=== PATIENT | female | born 1950 | race Caucasian/White ===

== ENCOUNTER 2018-04-15 21:15 | Emergency (ER) | payer MEDICARE ==
[2018-04-15] MEDS: PERCOCET 5MG/325MG TAB PO (23:41)
[2018-04-16 00:18] LABS: BASO % 0.4 % (0.0-1.0); EOS % 0.1 % (0.0-3.0); HEMATOCRIT 45.1 % (36.0-47.0); IMMATURE GRANULOCYTE % 0.5 % (0-3.0); LYMPH # 1.3 10^3/uL (1.5-4.5); LYMPH % 12.1 % (24.0-44.0); MEAN CORPUSCULAR HEMOGLOBIN 31.9 pg (27.0-33.0); MEAN CORPUSCULAR HGB CONC 35.5 g/dl (32.0-36.5); MONO # 0.5 10^3/uL (0.0-0.8); MONO % 4.7 % (0.0-5.0); NEUTROPHILS # 8.5 10^3/uL (1.8-7.7); NEUTROPHILS % 82.2 % (36.0-66.0); PLATELET COUNT, AUTOMATED 306 10^3/uL (150-450); RED BLOOD COUNT 5.01 10^6/uL (4.00-5.40); WHITE BLOOD COUNT 10.3 10^3/uL (4.0-10.0)
[2018-04-16 00:41] LABS: ALBUMIN 3.9 GM/DL (3.2-5.2); ALBUMIN/GLOBULIN RATIO 1.03 (1.00-1.93); ALKALINE PHOSPHATASE 116 U/L (45-117); ALT/SGPT 33 U/L (12-78); ANION GAP 13 MEQ/L (8-16); AST/SGOT 18 U/L (7-37); BILIRUBIN,DIRECT 0.2 MG/DL (0.0-0.2); BILIRUBIN,TOTAL 0.5 MG/DL (0.2-1.0); BLOOD UREA NITROGEN 33 MG/DL (7-18); CALCIUM LEVEL 9.6 MG/DL (8.8-10.2); CARBON DIOXIDE LEVEL 26 MEQ/L (21-32); CHLORIDE LEVEL 98 MEQ/L (98-107); CK-MB VALUE MASS 3.4 NG/ML (<3.6); CPK CREATINE PHOSPHOKINASE 100 U/L (26-192); CREATININE FOR GFR 1.13 MG/DL (0.55-1.30); GLOMERULAR FILTRATION RATE 50.7 (>39); GLUCOSE, FASTING 180 MG/DL (70-100); LIPASE 273 U/L (73-393); POTASSIUM SERUM 4.1 MEQ/L (3.5-5.1); SODIUM LEVEL 137 MEQ/L (136-145); TOTAL PROTEIN 7.7 GM/DL (6.4-8.2); TROPONIN I < 0.02 NG/ML (< 0.10)
== END 2018-04-16 02:07 | disposition home or self-care (01) ==
LOC: M ED 04-16 02:07
DX: M50.31 Other cervical disc degeneration, high cervical region (principal); M50.321 Other cervical disc degeneration at C4-C5 level; M54.12 Radiculopathy, cervical region; M12.9 Arthropathy, unspecified; R94.31 Abnormal electrocardiogram [ECG] [EKG]; I10 Essential (primary) hypertension; E78.00 Pure hypercholesterolemia, unspecified; E07.9 Disorder of thyroid, unspecified; F41.9 Anxiety disorder, unspecified; Z79.82 Long term (current) use of aspirin; Z79.52 Long term (current) use of systemic steroids; Z79.899 Other long term (current) drug therapy
CPT/HCPCS: J2270

== ENCOUNTER 2018-04-16 19:58 | Emergency (ER) | payer MEDICARE ==
[2018-04-16] MEDS ORDERED: MORPHINE 4 MG/ML 1ML VIAL/SYRINGE (J2270) IV (22:00)
[2018-04-16] MEDS: MORPHINE 4 MG/ML 1ML VIAL/SYRINGE (J2270) IM (22:14)
[2018-04-16] MEDS: ONDANSETRON 4 MG ORAL DISINTEGRATING TAB (Q0162 PER 1MG) PO (22:14)
== END 2018-04-16 22:44 | disposition home or self-care (01) ==
LOC: M ED 19:58
DX: M50.31 Other cervical disc degeneration, high cervical region (principal); M50.321 Other cervical disc degeneration at C4-C5 level; M54.12 Radiculopathy, cervical region; I10 Essential (primary) hypertension; E78.70 Disorder of bile acid and cholesterol metabolism, unspecified; E07.9 Disorder of thyroid, unspecified; F41.9 Anxiety disorder, unspecified; Z79.52 Long term (current) use of systemic steroids; Z79.890 Hormone replacement therapy; Z79.899 Other long term (current) drug therapy

== ENCOUNTER 2018-10-24 08:46 | Emergency (ER) | payer MEDICARE ==
[~2018-10-24 08:46] MED LIST: CALCTAB97 PO; GABA-1171; LIPI20TA PO; MAXZTAB PO; PERCOCET PO; PRED10TA2; RANI1SYP PO; ROBA500T PO; SING10TA32 PO; SYNT88TA2 PO; TYLE1TAB5 PO; VITAD1000T PO
[2018-10-24] MEDS ORDERED: ESCI5SOL3 PO (09:10)
[2018-10-24] MEDS ORDERED: PROAAER10 INH (09:11)
[2018-10-24] MEDS ORDERED: NORCO, ANEXSIA 5/325MG TABLET (HYDROcodone/ACETAMINOPHEN) PO ONE (09:15)
[2018-10-24] MEDS ORDERED: NORCOTAB PO (10:09)
--- NOTE | 2018-10-24 10:14 | REP ---
CT LUMBAR SPINE WITHOUT CONTRAST: HISTORY: Trauma. There is no disc bulge or herniation at the L1-2 and L2-3 levels. The nerves exit the neural foramina without compression. A diffuse disc bulge is present at the L3-4 level. There is minimal compression of the thecal sac. There is hypertrophy of the posterior articulating facets. The L3 nerves exit the neural foramina without compression. A diffuse disc bulge is present at the L4-5 level. There is hypertrophy of the ligamenta flava and posterior articulating facets. There are 4 mm of grade I spondylolisthesis of L4 on 5. These findings produce mild central canal stenosis. The L4 nerves exit the neural foramina without compression. A diffuse disc bulge is present at the L5-S1 level. There is minimal compression of the thecal sac. There is hypertrophy of the posterior articulating facets. The L5 nerves exit the neural foramina without compression. The L3-4 through L5-S1 intervertebral discs are decreased in height consistent with disc degeneration. There is a fracture of the right L1 transverse process. There is sclerosis adjacent to the sacroiliac joints. IMPRESSION: 1. Diffuse disc bulges at the L3-4 and L5-S1 levels with minimal thecal sac compression. 2. Mild central canal stenosis at the L4-5 level secondary to disc bulge, ligamentous and facet hypertrophy, and grade I spondylolisthesis. 3. Right L1 transverse process fracture. Electronically Signed by German Tidwell MD 10/24/2018 10:18 A
[2018-10-24 10:30] VITALS: BP 142/74
== END 2018-10-24 10:58 | disposition home or self-care (01) ==
LOC: M ED 08:46
DX: S32.018A Other fracture of first lumbar vertebra, initial encounter for closed fracture (principal); W10.8XXA Fall (on) (from) other stairs and steps, initial encounter; Y92.89 Other specified places as the place of occurrence of the external cause; I10 Essential (primary) hypertension; E07.9 Disorder of thyroid, unspecified; Z79.899 Other long term (current) drug therapy; Z79.890 Hormone replacement therapy

== ENCOUNTER 2021-11-10 08:55 | Inpatient (IN) | payer MEDICARE ==
[~2021-11-10] VITALS: Ht 157.5 cm; Wt 87.5 kg
[~2021-11-10 08:55] MED LIST changes: +CHOL100029 PO; +ESCI5SOL3 PO; +HYDR-3715 PO; +PROAAER10 INH; -VITAD1000T PO
[2021-11-10] MEDS ORDERED: NS 1,000 ML IV SCH (09:15)
[2021-11-10] MEDS ORDERED: NS 1,000 ML IV ONE (09:15)
[2021-11-10] MEDS ORDERED: ONDANSETRON 4MG/2ML VIAL IV ONE (09:15)
[2021-11-10] MEDS: MORPHINE 4 MG/ML 1ML VIAL/SYRINGE (J2270) IV PRN ×2 (09:29→10:18)
[2021-11-10 09:34] LABS: BASO # 0.1 10^3/uL (0.0-0.2); BASO % 0.7 % (0.0-1.0); EOS # 0.1 10^3/uL (0.0-0.5); EOS % 1.1 % (0.0-3.0); HEMATOCRIT 37.1 % (36.0-47.0); HEMOGLOBIN 12.8 g/dl (12.0-15.5); LYMPH % 9.3 % (24.0-44.0); MEAN CORPUSCULAR HEMOGLOBIN 30.9 pg (27.0-33.0); MEAN CORPUSCULAR HGB CONC 34.5 g/dl (32.0-36.5); MEAN CORPUSCULAR VOLUME 89.6 fl (80.0-96.0); MONO % 9.6 % (2.0-8.0); NEUTROPHILS # 8.4 10^3/uL (1.5-8.5); NEUTROPHILS % 78.5 % (36.0-66.0); PLATELET COUNT, AUTOMATED 278 10^3/uL (150-450); RED BLOOD COUNT 4.14 10^6/uL (4.00-5.40); WHITE BLOOD COUNT 10.6 10^3/uL (4.0-10.0)
[2021-11-10 10:02] LABS: ALBUMIN 3.4 GM/DL (3.2-5.2); BILIRUBIN,DIRECT 0.2 MG/DL (0.0-0.2); BILIRUBIN,TOTAL 0.6 MG/DL (0.2-1.0); CALCIUM LEVEL 9.5 MG/DL (8.8-10.2); CREATININE FOR GFR 1.19 MG/DL (0.55-1.30); GLOMERULAR FILTRATION RATE 47.3 (>39); POTASSIUM SERUM 3.8 MEQ/L (3.5-5.1); TOTAL PROTEIN 7.2 GM/DL (6.4-8.2)
[2021-11-10 11:12] LABS: RSV AMPLIFICATION NEGATIVE (NEGATIVE)
[2021-11-10] MEDS ORDERED: LEVO88TA3 PO (11:52)
[2021-11-10] MEDS ORDERED: CARB25TA9 PO (11:52)
[2021-11-10] MEDS ORDERED: FAMO1TAB11 PO (11:52)
[2021-11-10] MEDS ORDERED: SPIR-10 PO (11:52)
[2021-11-10] MEDS ORDERED: MORPHINE 4 MG/ML 1ML VIAL/SYRINGE (J2270) IV PRN ×2 (11:55→13:35)
[2021-11-10] MEDS ORDERED: LR 1,000 ML IV SCH (13:35)
[2021-11-10] MEDS ORDERED: KETOROLAC 30 MG/ML 1ML VIAL IV PRN (13:35)
[2021-11-10] MEDS ORDERED: VITA100093 PO (14:11)
[2021-11-10] MEDS ORDERED: LOSA25TA13 PO (14:11)
[2021-11-10] MEDS ORDERED: CITRTAB16 PO (14:11)
[2021-11-10] MEDS ORDERED: LEXA1TAB PO (14:11)
[2021-11-10] MEDS ORDERED: HOME MED LIST COMPLETE! XX SCH (14:15)
[2021-11-10 16:32] LABS: BASO # 0.1 10^3/uL (0.0-0.2); BASO % 0.6 % (0.0-1.0); EOS # 0.1 10^3/uL (0.0-0.5); HEMATOCRIT 36.8 % (36.0-47.0); HEMOGLOBIN 12.4 g/dl (12.0-15.5); LYMPH % 8.6 % (24.0-44.0); MEAN CORPUSCULAR HEMOGLOBIN 30.5 pg (27.0-33.0); MEAN CORPUSCULAR HGB CONC 33.7 g/dl (32.0-36.5); MEAN CORPUSCULAR VOLUME 90.4 fl (80.0-96.0); MONO # 1.4 10^3/uL (0.0-0.8); MONO % 11.2 % (2.0-8.0); NEUTROPHILS # 9.4 10^3/uL (1.5-8.5); NEUTROPHILS % 77.9 % (36.0-66.0); RED BLOOD COUNT 4.07 10^6/uL (4.00-5.40)
[2021-11-10] MEDS: LOSARTAN 25 MG TAB PO SCH (16:51)
[2021-11-10 17:02] LABS: PLATELET COUNT, AUTOMATED 247 10^3/uL (150-450)
[2021-11-10] MEDS: ACETAMINOPHEN TAB 650MG DOSE (2X325MG) PO PRN (22:04)
[2021-11-10] MEDS: NS 1,000 ML IV SCH (22:05)
[2021-11-10] MEDS: PIPERACILLIN/TAZOBACTAM SOD 3.375 GM in D5W MINI-BAG PLUS 50 ML IV SCH (22:07)
[2021-11-11] MEDS: PIPERACILLIN/TAZOBACTAM SOD 3.375 GM in D5W MINI-BAG PLUS 50 ML IV SCH ×4 (04:14→20:53)
[2021-11-11] MEDS: ONDANSETRON 4MG/2ML VIAL IV PRN (08:07)
[2021-11-11] MEDS: NS 1,000 ML IV SCH (09:04)
[2021-11-11] MEDS: LOSARTAN 25 MG TAB PO SCH (09:05)
[2021-11-11 10:00] VITALS: BP 155/81
[2021-11-11 10:04] LABS: BASO # 0.1 10^3/uL (0.0-0.2); BASO % 0.5 % (0.0-1.0); EOS # 0.2 10^3/uL (0.0-0.5); EOS % 2.1 % (0.0-3.0); HEMOGLOBIN 11.3 g/dl (12.0-15.5); LYMPH # 0.7 10^3/uL (1.5-5.0); LYMPH % 7.2 % (24.0-44.0); MEAN CORPUSCULAR HEMOGLOBIN 31.1 pg (27.0-33.0); MEAN CORPUSCULAR HGB CONC 34.2 g/dl (32.0-36.5); MEAN CORPUSCULAR VOLUME 90.9 fl (80.0-96.0); MONO # 1.3 10^3/uL (0.0-0.8); MONO % 12.4 % (2.0-8.0); PLATELET COUNT, AUTOMATED 222 10^3/uL (150-450); RED BLOOD COUNT 3.63 10^6/uL (4.00-5.40); WHITE BLOOD COUNT 10.3 10^3/uL (4.0-10.0)
[2021-11-11 10:36] LABS: ALBUMIN 2.6 GM/DL (3.2-5.2); ALT/SGPT 140 U/L (12-78); BLOOD UREA NITROGEN 20 MG/DL (7-18); CALCIUM LEVEL 8.3 MG/DL (8.8-10.2); CARBON DIOXIDE LEVEL 26 MEQ/L (21-32); CHLORIDE LEVEL 111 MEQ/L (98-107); CREATININE FOR GFR 0.86 MG/DL (0.55-1.30); GLOMERULAR FILTRATION RATE > 60.0 (>39); GLUCOSE, FASTING 147 MG/DL (70-100); POTASSIUM SERUM 3.9 MEQ/L (3.5-5.1); SODIUM LEVEL 142 MEQ/L (136-145); TOTAL PROTEIN 5.8 GM/DL (6.4-8.2)
[2021-11-11] MEDS ORDERED: ALBUTEROL 90 MCG/ACT 8GM HFA INHALER INH PRN (16:40)
[2021-11-11] MEDS: ACETAMINOPHEN TAB 650MG DOSE (2X325MG) PO PRN (17:53)
[2021-11-11 20:00] VITALS: BP 140/62
[2021-11-11] MEDS: ATORVASTATIN 20 MG TAB PO SCH (20:53)
[2021-11-12] VITALS (10 sets, daily range): BP systolic 138–154; BP diastolic 62–75
[2021-11-12] MEDS: NS 1,000 ML IV SCH ×2 (04:23→18:25)
[2021-11-12] MEDS: PIPERACILLIN/TAZOBACTAM SOD 3.375 GM in D5W MINI-BAG PLUS 50 ML IV SCH ×4 (04:24→21:32)
[2021-11-12] MEDS: ONDANSETRON 4MG/2ML VIAL IV PRN (05:32)
[2021-11-12] MEDS: LEVOTHYROXINE 88MCG TABLET (0.088 MG) PO SCH (05:54)
[2021-11-12 06:04] LABS: BASO # 0.1 10^3/uL (0.0-0.2); BASO % 0.7 % (0.0-1.0); EOS # 0.5 10^3/uL (0.0-0.5); HEMATOCRIT 32.6 % (36.0-47.0); HEMOGLOBIN 10.8 g/dl (12.0-15.5); LYMPH # 1.1 10^3/uL (1.5-5.0); LYMPH % 11.5 % (24.0-44.0); MEAN CORPUSCULAR HEMOGLOBIN 30.4 pg (27.0-33.0); MEAN CORPUSCULAR HGB CONC 33.1 g/dl (32.0-36.5); MEAN CORPUSCULAR VOLUME 91.8 fl (80.0-96.0); MONO # 0.9 10^3/uL (0.0-0.8); MONO % 10.1 % (2.0-8.0); NEUTROPHILS # 6.6 10^3/uL (1.5-8.5); PLATELET COUNT, AUTOMATED 233 10^3/uL (150-450); RED BLOOD COUNT 3.55 10^6/uL (4.00-5.40); WHITE BLOOD COUNT 9.2 10^3/uL (4.0-10.0)
[2021-11-12 06:29] LABS: ALBUMIN 2.4 GM/DL (3.2-5.2); ALT/SGPT 143 U/L (12-78); BILIRUBIN,TOTAL 0.9 MG/DL (0.2-1.0); BLOOD UREA NITROGEN 17 MG/DL (7-18); CALCIUM LEVEL 8.3 MG/DL (8.8-10.2); CARBON DIOXIDE LEVEL 24 MEQ/L (21-32); CHLORIDE LEVEL 113 MEQ/L (98-107); CREATININE FOR GFR 0.76 MG/DL (0.55-1.30); GLOMERULAR FILTRATION RATE > 60.0 (>39); GLUCOSE, FASTING 99 MG/DL (70-100); POTASSIUM SERUM 3.7 MEQ/L (3.5-5.1); SODIUM LEVEL 143 MEQ/L (136-145); TOTAL PROTEIN 5.6 GM/DL (6.4-8.2)
[2021-11-12] MEDS: ESCITALOPRAM OXALATE 10 MG TAB (LEXAPRO) PO SCH (10:22)
[2021-11-12] MEDS: LOSARTAN 25 MG TAB PO SCH (10:23)
[2021-11-12] MEDS ORDERED: dexameTHASONE 4 MG/ML 1ML VIAL (J1100 PER 1MG) As Ordered ONE (13:36)
[2021-11-12] MEDS ORDERED: LIDOCAINE 2% 100MG/5ML SDV (FOR ANES.) As Ordered ONE (13:36)
[2021-11-12] MEDS ORDERED: ONDANSETRON 4MG/2ML VIAL As Ordered ONE (13:36)
[2021-11-12] MEDS ORDERED: propofoL 200 MG/20 ML VIAL As Ordered ONE (13:36)
[2021-11-12] MEDS ORDERED: ROCURONIUM BROMIDE 50 MG/5 ML VIAL As Ordered ONE ×2 (13:36→14:39)
[2021-11-12] MEDS ORDERED: MIDAZOLAM INJ 2MG/2ML VIAL (J2250 PER 1MG) As Ordered ONE (13:37)
[2021-11-12] MEDS ORDERED: fentaNYL 100 MCG/2 ML INJECTION As Ordered ONE (13:38)
[2021-11-12] MEDS ORDERED: BUPIVACAINE HCL 0.25% 30ML VIAL As Ordered ONE (14:08)
[2021-11-12] MEDS ORDERED: LIDOCAINE 1% SDV 30ML VIAL As Ordered ONE (14:08)
[2021-11-12] MEDS ORDERED: ACETAMINOPHEN 1000MG 100ML IV BTL (OFIRMEV) (J0131 PER 10MG) As Ordered ONE (14:20)
[2021-11-12] MEDS ORDERED: HYDROmorphone HCL 2MG/ML 1ML VIAL As Ordered ONE (14:29)
[2021-11-12] MEDS ORDERED: KETOROLAC 60MG 2ML VIAL As Ordered ONE (14:34)
[2021-11-12] MEDS ORDERED: SUGAMMADEX SODIUM 500 MG/5 ML VIAL (BRIDION) As Ordered ONE (14:34)
[2021-11-12] MEDS ORDERED: ZOSYN 3.375GM VIAL As Ordered ONE (16:04)
[2021-11-12] MEDS ORDERED: PERCOCET 5MG/325MG TAB PO PRN (17:10)
[2021-11-12] MEDS ORDERED: LR 1,000 ML IV SCH (17:20)
[2021-11-12] MEDS ORDERED: fentaNYL 100 MCG/2 ML INJECTION IV PRN (17:20)
[2021-11-12] MEDS ORDERED: oxyCODONE 5MG TAB PO PRN (17:20)
[2021-11-12] MEDS ORDERED: ONDANSETRON 4MG/2ML VIAL IV PRN (17:20)
[2021-11-12] MEDS: ATORVASTATIN 20 MG TAB PO SCH (20:38)
[2021-11-12] MEDS: FAMOTIDINE 20 MG TAB PO SCH (20:39)
[2021-11-13 02:00] VITALS: BP 131/75
[2021-11-13] MEDS: PIPERACILLIN/TAZOBACTAM SOD 3.375 GM in D5W MINI-BAG PLUS 50 ML IV SCH ×2 (04:30→09:30)
[2021-11-13 06:00] VITALS: BP 144/71
[2021-11-13] MEDS: LEVOTHYROXINE 88MCG TABLET (0.088 MG) PO SCH (06:01)
[2021-11-13 06:44] LABS: BASO % 0.1 % (0.0-1.0); HEMATOCRIT 29.8 % (36.0-47.0); HEMOGLOBIN 10.1 g/dl (12.0-15.5); LYMPH # 0.7 10^3/uL (1.5-5.0); LYMPH % 9.4 % (24.0-44.0); MEAN CORPUSCULAR HEMOGLOBIN 30.7 pg (27.0-33.0); MEAN CORPUSCULAR HGB CONC 33.9 g/dl (32.0-36.5); MEAN CORPUSCULAR VOLUME 90.6 fl (80.0-96.0); MONO # 0.7 10^3/uL (0.0-0.8); MONO % 8.9 % (2.0-8.0); NEUTROPHILS # 5.9 10^3/uL (1.5-8.5); NEUTROPHILS % 80.5 % (36.0-66.0); PLATELET COUNT, AUTOMATED 253 10^3/uL (150-450); RED BLOOD COUNT 3.29 10^6/uL (4.00-5.40); WHITE BLOOD COUNT 7.3 10^3/uL (4.0-10.0)
[2021-11-13 07:18] LABS: ALBUMIN 2.3 GM/DL (3.2-5.2); ALT/SGPT 119 U/L (12-78); BILIRUBIN,TOTAL 0.6 MG/DL (0.2-1.0); BLOOD UREA NITROGEN 21 MG/DL (7-18); CALCIUM LEVEL 8.4 MG/DL (8.8-10.2); CARBON DIOXIDE LEVEL 21 MEQ/L (21-32); CHLORIDE LEVEL 112 MEQ/L (98-107); CREATININE FOR GFR 0.79 MG/DL (0.55-1.30); GLOMERULAR FILTRATION RATE > 60.0 (>39); GLUCOSE, FASTING 149 MG/DL (70-100); POTASSIUM SERUM 3.6 MEQ/L (3.5-5.1); SODIUM LEVEL 141 MEQ/L (136-145); TOTAL PROTEIN 5.9 GM/DL (6.4-8.2)
[2021-11-13] MEDS: SPIRONOLACTONE 25 MG TAB PO SCH (09:28)
[2021-11-13] MEDS: FAMOTIDINE 20 MG TAB PO SCH ×2 (09:29→20:39)
[2021-11-13] MEDS: ESCITALOPRAM OXALATE 10 MG TAB (LEXAPRO) PO SCH (09:29)
[2021-11-13] MEDS: LOSARTAN 25 MG TAB PO SCH (09:30)
[2021-11-13 10:00] VITALS: BP 136/65
[2021-11-13] MEDS: NS 1,000 ML IV SCH (10:15)
[2021-11-13] MEDS: LevoFLOXacin 750 MG TABLET PO SCH (12:01)
[2021-11-13 14:00] VITALS: BP 133/64
[2021-11-13 20:00] VITALS: BP 142/65
[2021-11-13] MEDS: ATORVASTATIN 20 MG TAB PO SCH (20:39)
[2021-11-13 22:00] VITALS: BP 142/65
[2021-11-14 02:00] VITALS: BP 141/66
[2021-11-14] MEDS: LEVOTHYROXINE 88MCG TABLET (0.088 MG) PO SCH (05:34)
[2021-11-14] MEDS: LevoFLOXacin 750 MG TABLET PO SCH (05:34)
[2021-11-14 06:00] VITALS: BP 145/67
[2021-11-14 06:45] LABS: ALBUMIN 2.5 GM/DL (3.2-5.2); ALT/SGPT 86 U/L (12-78); BILIRUBIN,TOTAL 0.3 MG/DL (0.2-1.0); BLOOD UREA NITROGEN 17 MG/DL (7-18); CALCIUM LEVEL 8.4 MG/DL (8.8-10.2); CARBON DIOXIDE LEVEL 25 MEQ/L (21-32); CHLORIDE LEVEL 112 MEQ/L (98-107); CREATININE FOR GFR 0.88 MG/DL (0.55-1.30); GLOMERULAR FILTRATION RATE > 60.0 (>39); GLUCOSE, FASTING 98 MG/DL (70-100); POTASSIUM SERUM 3.4 MEQ/L (3.5-5.1); SODIUM LEVEL 143 MEQ/L (136-145); TOTAL PROTEIN 5.5 GM/DL (6.4-8.2)
[2021-11-14 09:24] VITALS: BP 138/69
[2021-11-14] MEDS: LOSARTAN 25 MG TAB PO SCH (09:24)
[2021-11-14] MEDS: ESCITALOPRAM OXALATE 10 MG TAB (LEXAPRO) PO SCH (09:24)
[2021-11-14] MEDS: FAMOTIDINE 20 MG TAB PO SCH (09:24)
[2021-11-14] MEDS: SPIRONOLACTONE 25 MG TAB PO SCH (09:24)
[2021-11-14 10:00] VITALS: BP 138/69
[2021-11-14] MEDS ORDERED: LEVO750T13 PO (10:33)
== END 2021-11-14 11:26 | disposition home or self-care (01) | DRG 419 ==
LOC: M ED 08:55 → M ED INP 13:33 → OBSVTOIN 22:17 → ENRESERV 11-11 15:19 → M MSPAV 11-11 15:40
PROVIDERS: ADMIT Surgery; ATTEND Surgery
PROC: 8E0W4CZ Robotic Assisted Procedure of Trunk Region, Percutaneous Endoscopic Approach (ICD-10-PCS; 2021-11-12)
PROC: 0FT44ZZ Resection of Gallbladder, Percutaneous Endoscopic Approach (ICD-10-PCS; principal; 2021-11-12 10:36)
DX: K81.0 Acute cholecystitis (principal); Z79.899 Other long term (current) drug therapy; E03.9 Hypothyroidism, unspecified; E78.5 Hyperlipidemia, unspecified; I10 Essential (primary) hypertension

== ENCOUNTER 2022-12-08 07:07 | Observation (INO) | payer MEDICARE ==
[~2022-12-08] VITALS: Ht 157.5 cm; Wt 83.0 kg
[2022-12-08] MEDS: LEVOTHYROXINE 88MCG TABLET (0.088 MG) PO SCH (06:00)
[~2022-12-08 07:07] MED LIST changes: +CARB25TA9 PO; +CITRACAL MAXIMU1 TAB PO; +FAMO1TAB11 PO; +LEVO1TAB40 PO; +LEVO88TA3 PO; +LEXA1TAB PO; +LOSA25TA13 PO; +MONT-5 PO; -SING10TA32 PO; +SPIR-10 PO; +VITA100093 PO
[2022-12-08] MEDS ORDERED: NS 500 ML IV ONE (07:30)
[2022-12-08 08:29] LABS: BASO # 0.1 10^3/uL (0.0-0.2); BASO % 0.9 % (0.0-1.0); EOS # 0.2 10^3/uL (0.0-0.5); EOS % 1.8 % (0.0-3.0); HEMATOCRIT 32.6 % (36.0-47.0); HEMOGLOBIN 10.8 g/dl (12.0-15.5); LYMPH # 1.4 10^3/uL (1.5-5.0); MEAN CORPUSCULAR HEMOGLOBIN 31.3 pg (27.0-33.0); MEAN CORPUSCULAR HGB CONC 33.1 g/dl (32.0-36.5); MEAN CORPUSCULAR VOLUME 94.5 fl (80.0-96.0); MONO # 0.8 10^3/uL (0.0-0.8); MONO % 8.1 % (2.0-8.0); NEUTROPHILS % 73.5 % (36.0-66.0); PLATELET COUNT, AUTOMATED 277 10^3/uL (150-450); RED BLOOD COUNT 3.45 10^6/uL (4.00-5.40); WHITE BLOOD COUNT 9.5 10^3/uL (4.0-10.0)
[2022-12-08 08:45] LABS: CK-MB VALUE MASS 1.8 NG/ML (<3.6); LIPASE 53 U/L (12-53)
[2022-12-08 08:46] LABS: AMYLASE 53 U/L (30-118)
[2022-12-08 08:47] LABS: ALBUMIN 3.4 G/DL (3.2-5.2); ALKALINE PHOSPHATASE 95 U/L (46-116); ALT/SGPT < 9 U/L (7.0-40); AST/SGOT 20 U/L (<34); BILIRUBIN,DIRECT 0.1 MG/DL (<0.4); BILIRUBIN,TOTAL 0.3 MG/DL (0.3-1.2)
[2022-12-08 08:48] LABS: INR 0.94; PROTHROMBIN TIME 12.8 SECONDS (12.5-14.5)
[2022-12-08 08:49] LABS: PARTIAL THROMBOPLASTIN TIME 22.3 SECONDS (24.8-34.2)
[2022-12-08 08:53] LABS: CPK CREATINE PHOSPHOKINASE 95 U/L (34-145); MB/CK RELATIVE INDEX 1.89 (< OR =4)
[2022-12-08 09:00] LABS: RSV AMPLIFICATION NEGATIVE (NEGATIVE)
[2022-12-08] MEDS: ESCITALOPRAM OXALATE 10 MG TAB (LEXAPRO) PO SCH (09:00)
[2022-12-08] MEDS: METOPROLOL SUCC *XL* 12.5MG PER 1/2 TAB (TopROL *XL*) PO SCH (09:00)
[2022-12-08] MEDS ORDERED: NS 1,000 ML IV ONE (09:00)
[2022-12-08] MEDS: FAMOTIDINE 20 MG TAB PO SCH ×2 (09:00→21:44)
[2022-12-08] MEDS: LOSARTAN 25 MG TAB PO SCH (09:00)
[2022-12-08] MEDS: OMEGA-3 1000MG CAPSULE PO SCH (09:00)
[2022-12-08] MEDS: ASPIRIN 81MG CHEW TABLET PO SCH (09:00)
[2022-12-08] MEDS: VITAMIN D 1,000 INTERNATIONAL UNITS TABLET PO SCH (09:00)
[2022-12-08] MEDS ORDERED: ASPI81CH33 PO (09:26)
[2022-12-08] MEDS ORDERED: METO1TAB32 PO (09:26)
[2022-12-08] MEDS ORDERED: NYST1POW9 TOP (09:26)
[2022-12-08] MEDS ORDERED: OMEGCAP4 PO (09:26)
[2022-12-08] MEDS ORDERED: FAMO40TA3 PO (09:26)
[2022-12-08] MEDS ORDERED: HOME MED LIST COMPLETE! XX SCH (09:30)
[2022-12-08] MEDS ORDERED: ALBUTEROL 90 MCG/ACT 8GM HFA INHALER INH PRN (11:00)
[2022-12-08] MEDS ORDERED: CALC1TAB30 PO (11:19)
[2022-12-08] MEDS ORDERED: VENTAER INH (11:19)
[2022-12-08 14:50] VITALS: BP 151/74
[2022-12-08 19:25] LABS: HEMATOCRIT 29.5 % (36.0-47.0)
[2022-12-08] MEDS ORDERED: ATORVASTATIN 20 MG TAB PO SCH (21:00)
[2022-12-08 21:30] VITALS: BP 114/85
[2022-12-09 05:00] VITALS: BP 153/83
[2022-12-09 05:53] LABS: HEMATOCRIT 30.7 % (36.0-47.0); HEMOGLOBIN 10.1 g/dl (12.0-15.5); MEAN CORPUSCULAR HEMOGLOBIN 31.1 pg (27.0-33.0); MEAN CORPUSCULAR HGB CONC 32.9 g/dl (32.0-36.5); MEAN CORPUSCULAR VOLUME 94.5 fl (80.0-96.0); PLATELET COUNT, AUTOMATED 267 10^3/uL (150-450); RED BLOOD COUNT 3.25 10^6/uL (4.00-5.40); WHITE BLOOD COUNT 8.6 10^3/uL (4.0-10.0)
[2022-12-09 06:24] LABS: BLOOD UREA NITROGEN 27 MG/DL (9-23); CALCIUM LEVEL 8.5 MG/DL (8.3-10.6); CARBON DIOXIDE LEVEL 24 MMOL/L (20-31); CHLORIDE LEVEL 109 MMOL/L (98-107); CREATININE FOR GFR 0.85 MG/DL (0.55-1.30); GLOMERULAR FILTRATION RATE > 60.0 (>39); GLUCOSE, FASTING 136 MG/DL (74-106); POTASSIUM SERUM 3.7 MMOL/L (3.5-5.1); SODIUM LEVEL 143 MMOL/L (136-145)
[2022-12-09] MEDS: LEVOTHYROXINE 88MCG TABLET (0.088 MG) PO SCH (06:28)
[2022-12-09] MEDS ORDERED: COLA100C5 PO (09:02)
[2022-12-09] MEDS: METOPROLOL SUCC *XL* 12.5MG PER 1/2 TAB (TopROL *XL*) PO SCH (09:08)
[2022-12-09] MEDS: FAMOTIDINE 20 MG TAB PO SCH (09:08)
[2022-12-09] MEDS: ASPIRIN 81MG CHEW TABLET PO SCH (09:08)
[2022-12-09] MEDS: VITAMIN D 1,000 INTERNATIONAL UNITS TABLET PO SCH (09:08)
[2022-12-09] MEDS: OMEGA-3 1000MG CAPSULE PO SCH (09:08)
[2022-12-09] MEDS: ESCITALOPRAM OXALATE 10 MG TAB (LEXAPRO) PO SCH (09:08)
[2022-12-09 09:09] VITALS: BP 149/74
[2022-12-09] MEDS: LOSARTAN 25 MG TAB PO SCH (09:09)
== END 2022-12-09 10:55 | disposition home or self-care (01) ==
LOC: M ED 07:07 → EDBD 07:07 → EDSEX 07:07 → M ED INP 07:08 → M MSPAV 14:45
PROVIDERS: ADMIT Internal Medicine; ATTEND Internal Medicine
DX: K62.5 Hemorrhage of anus and rectum (principal); I10 Essential (primary) hypertension; E03.9 Hypothyroidism, unspecified; E78.5 Hyperlipidemia, unspecified; Z79.82 Long term (current) use of aspirin; Z79.899 Other long term (current) drug therapy
CPT/HCPCS: 36415; 71045; 80047; 80048; 80076; 82150; 82550; 82553; 83605; 83690; 84484; 85014; 85018; 85025; 85027; 85610; 85730; 86850; 86900; 86901; 87040; 87631; 93005; 93041; 96374; 96376; 99285; G0378